=== PATIENT | male | born 1985 | race African-American/Black ===

== ENCOUNTER 2016-05-12 23:54 | Emergency (ER) | payer SELFPAY ==
[~2016-05-12] VITALS: Ht 162.6 cm; Wt 77.0 kg
[2016-05-12 23:58] VITALS: BP 125/88; PULSE 79; RESP 16; TEMP 99; O2SAT 100
--- NOTE | 2016-05-13 00:24 | PD ---
HPI Chief Complaint: Oral / Dental Pain or Problem Time Seen by Provider: 00:22 Travel History International Travel<30 days: No Contact w/Intl Traveler<30days: No Traveled to known affect area: No History of Present Illness HPI 31-year-old black male presents to emergency Department with complaints of dental pain. He states he has a dental cavity for quite some time but has not bothered him until this evening. He states that he has had pain in his left lower mandible this evening. Pain is moderate. No fever chills. Worse with chewing. No palliative activity. PFSH Past Medical History Medical History: Denies Significant Hx Diminished Hearing: No Tetanus Vaccination: < 5 Years Past Surgical History Surgical History: No Previous Surgery Social History Alcohol Use: Yes (OCC) Tobacco Use: No Substance Use: No Allergies-Medications (Allergen,Severity, Reaction): Coded Allergies: No Known Allergies (Verified , 05/13/16) Reported Meds & Prescriptions Reported Meds & Active Scripts Active No Active Prescriptions or Reported Medications Review of Systems Except as stated in HPI: all other systems reviewed are Neg Physical Exam Narrative GENERAL: Well-developed, well-nourished in no acute distress. Nontoxic appearing. HEAD: Normocephalic, atraumatic. EYES: Pupils equal round and reactive. Extraocular motions intact. No scleral icterus. No injection or drainage. ENT: TMs clear without erythema. The external auditory canals clear. Nose: clear . Posterior pharynx is pink and moist. No tonsillar edema or exudate. Uvula midline. Airway patent. Patient has a large dental carry in tooth #19 NECK: Trachea midline.Supple, nontender, moves head freely. No central bony tenderness or spasm. CARDIOVASCULAR: Regular rate and rhythm without murmurs, gallops, or rubs. RESPIRATORY: Clear to auscultation. Breath sounds equal bilaterally. No wheezes , rales, or rhonchi. GASTROINTESTINAL: Abdomen soft, non-tender, nondistended. No hepato-splenomegaly , or palpable masses. No guarding. EXTREMITIES: No clubbing, cyanosis, or edema. No joint tenderness, effusion, or edema noted. BACK: Nontender without deformity or crepitance. No flank tenderness. Data Data Last Documented VS Vital Signs Date Time Temp Pulse Resp B/P Pulse Ox O2 Delivery O2 Flow Rate FiO2 05/12/16 23:58 99.0 79 16 125/88 100 Room Air MDM Medical Decision Making Medical Screen Exam Complete: Yes Emergency Medical Condition: Yes Differential Diagnosis MDM: Moderate Differential diagnoses: Dental abscess, dental caries, osteitis, cellulitis Narrative Course pATIENT IS GIVEN AMOXICILLIN 500 AND lORTAB 5 MG BY MOUTH. tHIS IS DENTAL CARIES, DENTALGIA Diagnosis Primary Impression: Dental caries Additional Impression: Dentalgia Patient Instructions: Narcotic given in the ED, General Instructions Additional Instructions: Rest. Saltwater gargles. Witter oil on cotton balls. Amoxicillin and diclofenac.. follow-up with a dentist as soon as possible. And return to the ER if any problems. Med/Other Pt SpecificInfo: Prescription(s) given Scripts No Active Prescriptions or Reported Meds Disposition: 01 DISCHARGE HOME Condition: Stable Luis Oro May 13, 2016 00:24
[2016-05-13] MEDS ORDERED: DICL50TA3 PO (00:26)
[2016-05-13] MEDS ORDERED: AMOX500C PO (00:26)
[2016-05-13] MEDS ORDERED: AMOXICILLIN (TRIHYDRATE) 500 MG CAP PO ONE (00:30)
[2016-05-13] MEDS ORDERED: ACETAMINOPHEN/HYDROcodone 325 MG/5 MG TAB PO ONE (00:30)
== END 2016-05-13 00:37 | disposition home or self-care (01) ==
LOC: NEPB 23:54
DX: K02.9 Dental caries, unspecified (principal)
CPT/HCPCS: 99282

== ENCOUNTER 2017-02-26 04:29 | Emergency (ER) | payer OTHER ==
[~2017-02-26] VITALS: Ht 162.6 cm; Wt 75.0 kg
[~2017-02-26 04:29] MED LIST: AMOX500C PO; DICL50TA3 PO
[2017-02-26 04:30] VITALS: BP 123/77; PULSE 78; RESP 16; TEMP 98.1; O2SAT 98
[2017-02-26] MEDS ORDERED: ALBU6.7H INH (05:00)
[2017-02-26] MEDS ORDERED: FEXO15TA PO (05:00)
--- NOTE | 2017-02-26 05:06 | PD ---
HPI Chief Complaint: Cold / Flu Symptoms Time Seen by Provider: 04:59 Travel History International Travel<30 days: No Contact w/Intl Traveler<30days: No Traveled to known affect area: No History of Present Illness HPI 31-year-old black male presents to emergency Department with complaints of chest congestion, chest pain, runny nose and sinus congestion. Patient states that he feels this is secondary to having mold in his house. He has had his symptoms on and off now for some time. Symptoms are moderate. Some relief with staying away from the house. PFSH Past Medical History Medical History: Denies Significant Hx Diminished Hearing: No Past Surgical History Surgical History: No Previous Surgery Social History Alcohol Use: Yes (OCC) Tobacco Use: No Substance Use: No Allergies-Medications (Allergen,Severity, Reaction): Coded Allergies: No Known Allergies (Verified Adverse Reaction, Unknown, 02/26/17) Reported Meds & Prescriptions Reported Meds & Active Scripts Active Proventil Hfa 6.7 GM Inh (Albuterol Sulfate) 90 Mcg/Act Aer 2 Puff INH Q6H PRN Daphney Allergy (Fexofenadine HCl) 180 Mg Tab 180 Mg PO DAILY Review of Systems Except as stated in HPI: all other systems reviewed are Neg Physical Exam Narrative GENERAL: Well-developed, well-nourished in no acute distress. Nontoxic appearing. HEAD: Normocephalic, atraumatic. EYES: Pupils equal round and reactive. Extraocular motions intact. No scleral icterus. No injection or drainage. ENT: TMs clear without erythema. The external auditory canals clear. Nose: clear . Posterior pharynx is pink and moist. No tonsillar edema or exudate. Uvula midline. Airway patent. NECK: Trachea midline.Supple, nontender, moves head freely. No central bony tenderness or spasm. CARDIOVASCULAR: Regular rate and rhythm without murmurs, gallops, or rubs. RESPIRATORY: Clear to auscultation. Breath sounds equal bilaterally. No wheezes , rales, or rhonchi. GASTROINTESTINAL: Abdomen soft, non-tender, nondistended. No hepato-splenomegaly , or palpable masses. No guarding. EXTREMITIES: No clubbing, cyanosis, or edema. No joint tenderness, effusion, or edema noted. BACK: Nontender without deformity or crepitance. No flank tenderness. Data Data Last Documented VS Vital Signs Date Time Temp Pulse Resp B/P (MAP) Pulse Ox O2 Delivery O2 Flow Rate FiO2 02/26/17 04:30 98.1 78 16 123/77 (92) 98 Room Air Orders Orders Ed Discharge Order (02/26/17 05:00) MDM Medical Decision Making Medical Screen Exam Complete: Yes Emergency Medical Condition: Yes Medical Record Reviewed: Yes Differential Diagnosis Differential diagnoses: Allergic rhinitis, URI, mold allergy Narrative Course The patient's exam is unremarkable. I've agreed to treat him with an antihistamine and an inhaler and told him to clean the area with Clorox and/or Borax. He should get a D humidifier to help dry up the moisture. This is allergic rhinitis Diagnosis Primary Impression: allergic rhinitis Patient Instructions: General Instructions Additional Instructions: Rest. Increase fluids. Daphney and Proventil. Clean up the mold with bleach or Borax. Dehumidifier. Practice avoidance. Hollow up with a medical doctor in one week. Return to the ER for emergencies. Med/Other Pt SpecificInfo: Prescription(s) given Scripts Albuterol 6.7 GM Inh (Proventil Hfa 6.7 GM Inh) 90 Mcg/Act Aer 2 PUFF INH Q6H Y for SHORTNESS OF BREATH, #1 INHALER 0 Refills Prov: Maximo Moise MD 02/26/17 Fexofenadine (Daphney Allergy) 180 Mg Tab 180 MG PO DAILY for Allergy Management, #30 TAB 0 Refills Prov: Maximo Moise MD 02/26/17 Disposition: 01 DISCHARGE HOME Condition: Stable Luis Oro Feb 26, 2017 05:06
== END 2017-02-26 05:31 | disposition home or self-care (01) ==
LOC: NEPD 04:29
DX: J30.9 Allergic rhinitis, unspecified (principal)
CPT/HCPCS: 99283